=== PATIENT | male | born 2000 | race Caucasian/White ===

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

== ENCOUNTER 2018-02-05 03:07 | Emergency (ER) | payer BC ==
[~2018-02-05] VITALS: Ht 165.1 cm; Wt 69.4 kg
[2018-02-05 03:15] VITALS: TEMP 37.4; Ht 165.1 cm; Wt 69.4 kg
[2018-02-05] MEDS ORDERED: PROMETHAZINE HCL INJ 25 MG in SODIUM CHLORIDE 0.9% 50ML 50 ML IV STA (03:35)
[2018-02-05] MEDS ORDERED: SODIUM CHLORIDE 0.9% 1000ML 1,000 ML IV ONE (03:45)
[2018-02-05] MEDS ORDERED: ACETAMINOPHEN IV 1,000 MG in EMPTY BAG 0 ML IV ONE (03:45)
[2018-02-05] MEDS ORDERED: ACETAMINOPHEN 1000 MG/100 ML IV IV ONE (03:46)
[2018-02-05 03:47] LABS: BASO % 0.2 %; BASO ABS # 0.01 K/uL (0-0.2); EOS % 0.6 %; EOS ABS # 0.04 K/uL (0-0.5); HEMOGLOBIN 16.4 g/dL (14.0-18.0); IG# 0.03 K/uL (0.00-0.02); LYMPH % 13.9 %; LYMPH ABS # 0.92 K/uL (1.2-3.4); MEAN CELL VOLUME 87.3 fL (80-100); MEAN CORPUSCULAR HEMOGLOBIN 31.1 pg (25-34); MEAN CORPUSCULAR HGB CONC 35.7 g/dl (32-36); MEAN PLATELET VOLUME 9.8 fL (7.4-10.4); MONO ABS # 0.66 K/uL (0.11-0.59); NEUT % 74.8 %; NEUT ABS # 4.94 K/uL (1.4-6.5); PLATELET COUNT 201 K/uL (130-400); RED CELL DISTRIBUTION WIDTH SD 41.8 fL (36.4-46.3)
[2018-02-05 03:57] VITALS: O2SAT 99
[2018-02-05 04:10] LABS: CALCIUM 8.8 mg/dl (8.5-10.1); CREATININE 0.95 mg/dl (0.60-1.40); POTASSIUM 3.5 mmol/L (3.5-5.1)
[2018-02-05 04:12] LABS: TOTAL PROTEIN 7.4 gm/dl (6.4-8.2)
[2018-02-05 04:17] LABS: INFLUENZA B ANTIGEN Neg for Influ B (NEG)
[2018-02-05 05:42] VITALS: BP 119/67; PULSE 69
[2018-02-05] MEDS ORDERED: OPTIRAY 320 IV PRN (06:00)
--- NOTE | 2018-02-05 06:40 | DIAGNOSTIC IMAGING REPORT ---
ABDOMINAL ULTRASOUND, LEFT UPPER QUADRANT HISTORY: LUQ abd pain. +Monoscreen. COMPARISON: CT of the abdomen and pelvis September 11, 2017. FINDINGS: The spleen is top normal in size, measuring 12 cm in maximal dimension. Equivocal heterogeneity of the spleen is likely within normal limits. No splenic lesion is identified. There is trace perisplenic fluid. The left kidney is within normal limits. IMPRESSION: 1. Top normal size spleen. 2. Trace perisplenic fluid. 3. No sonographic abnormality of the left kidney. Electronically signed by: Oseas Amor M.D. 02/05/2018 6:39 AM Dictated Date/Time: 02/05/2018 6:37 AM
[2018-02-05] MEDS ORDERED: ONDA4TAB10 SL (06:59)
[2018-02-05 07:13] VITALS: O2SAT 97
--- NOTE | 2018-02-05 07:13 | DIAGNOSTIC IMAGING REPORT ---
PA CHEST WITH ABDOMINAL SERIES CLINICAL HISTORY: Nausea and vomiting. FINDINGS: A PA chest radiograph is compared to study dated 08/02/2017. The cardiomediastinal silhouette is unremarkable. The lungs and pleural spaces are clear. No pneumothorax is seen. The bony thorax is grossly intact. Supine and erect abdominal radiographs are correlated with abdominal CT dated 09/11/2017. There is a nonobstructed abdominal bowel gas pattern. No evidence of intraperitoneal free air is seen. Moderate colonic fecal retention is observed. There are no abnormal abdominal calcifications. The lumbosacral spine and bony pelvis appear intact. IMPRESSION: 1. No active disease in the chest. 2. Nonobstructed abdominal bowel gas pattern noting moderate colonic fecal retention. Electronically signed by: Santana Lassiter M.D. 02/05/2018 7:12 AM Dictated Date/Time: 02/05/2018 7:11 AM
--- NOTE | 2018-02-05 07:18 | DIAGNOSTIC IMAGING REPORT ---
CT ABD/PELVIS IV CONTRAST ONLY CLINICAL HISTORY: Left upper quadrant abdominal pain. History of abnormal splenic ultrasound. FEVER COMPARISON STUDY: CT scan dated 09/11/2017. Splenic ultrasound dated 02/05/2018 TECHNIQUE: Following the IV administration of 93 mL of Optiray-320, CT scan of the abdomen and pelvis was performed from the lung bases to the proximal femurs. Images are reviewed in the axial, sagittal, and coronal planes. IV contrast was administered without complication. A dose lowering technique was utilized adhering to the principles of ALARA. CT DOSE: 299.28 mGy.cm FINDINGS: Lower chest: There are minor basilar atelectatic changes. Liver: The contrast-enhanced liver is normal in size, contour, and attenuation. There is no intrahepatic biliary ductal dilatation. The hepatic veins and portal veins are patent. Gallbladder: Unremarkable. Spleen: Normal in size and attenuation. Pancreas: Unremarkable. Adrenal glands: Unremarkable. Kidneys: There is symmetric renal cortical enhancement. The kidneys are normal in size without hydronephrosis. Bowel: There are no transition zones indicate bowel obstruction. There is no acute diverticulitis. There is no evidence of acute appendicitis. There is scattered stool within the colon. Peritoneum: There is trace pelvic fluid unchanged from the prior study. There is no free intraperitoneal air. Vasculature: The abdominal aorta is normal in course and caliber. Adenopathy: None. Pelvic viscera: The bladder, and pelvic viscera are unremarkable. Skeletal structures: There is bilateral L5 spondylolysis IMPRESSION: 1. No evidence of bowel obstruction. No evidence of free air 2. No evidence of acute appendicitis. No evidence of acute diverticulitis 3. No splenic abnormalities identified Electronically signed by: Luc Eng M.D. 02/05/2018 7:17 AM Dictated Date/Time: 02/05/2018 7:10 AM
--- NOTE | 2018-02-06 03:40 | EMERGENCY ROOM VISIT NOTE ---
History First contact with patient: 03:25 Chief Complaint: ABDOMINAL PAIN Stated Complaint: VOMITING,FEVER,PAIN IN UPPER LT ABD Nursing Triage Summary: left upper abdominal pain with fever, nausea History of Present Illness The patient is a 17 year old male who presents to the Emergency Room with complaints of nausea, vomiting, fever, and left upper abdominal pain. The patient states that he has been traveling for the past several hours. He was in [facility] today, and took a flight to [facility]. Upon landing in [place] he began having nausea, and vomited in the airport. He was able to board a flight to [place] [employer], and suffered another episode of vomiting while in route. 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 He reports having a low-grade, 100.0 fever. He states that his emesis was primarily food, and believes that it was pizza that he ate while in [place]. He is not having chest pain, chest tightness, or lower abdominal discomfort. He did take 8 mg oral Zofran which has not significant improved his symptoms. He is trying to sip water, however this does worsen his discomfort. He rates his overall discomfort a 4/10. Review of Systems More than 10 systems were reviewed and otherwise negative with the exception of history of present illness. Past Medical/Surgical History Immunoglobulin disorder Social History Smoking Status: Never Smoker Alcohol Use: none Drug Use: none Occupation Status: [employer] student Current/Historical Medications Scheduled Immune Globulin (Human) (Gamunex-C), 7 GM INJ WK Omeprazole (Prilosec), 20 MG PO BID Ondasetron Odt (Zofran Odt), 4 MG SL Q6H Ranitidine (Zantac), 150 MG PO QAM Scheduled PRN Budesonide/Formoterol Fumarate (Symbicort 160/4.5 Inhaler ), 2 PUFFS INH BID PRN for Shortness of Breath Physical Exam Vital Signs Date Time Temp Pulse Resp B/P (MAP) Pulse Ox O2 Delivery O2 Flow Rate FiO2 02/05/18 07:13 17 97 02/05/18 05:42 69 16 119/67 96 Room Air 02/05/18 04:19 75 16 126/70 98 Room Air 02/05/18 04:00 80 02/05/18 03:57 80 16 141/81 99 Room Air 02/05/18 03:57 99 Room Air 02/05/18 03:15 37.4 99 18 121/78 97 Room Air Physical Exam VITALS: Vitals are noted on the nurse's note and reviewed by myself. Vital signs stable. GENERAL: Well-developed, well-nourished, white male, who is in no acute distress and resting comfortably. Patient is cooperative with the examination. HEAD: Normocephalic atraumatic. EARS: External ear normal. External auditory canals clear, tympanic membranes pearly cruz without erythema or effusion bilaterally. EYES: Pupils equal round and reactive to light and accommodation. Conjunctivae without injection, sclerae without icterus. Extraocular movements intact. NOSE: Patent, turbinates without inflammation or discharge. MOUTH: Mucous membranes moist. Tonsils are not enlarged. Pharynx without erythema, blood, or exudate. Uvula midline. Airway patent. NECK: Supple without nuchal rigidity. No lymphadenopathy. No thyromegaly. Cervical spine is nontender. HEART: Regular rate and rhythm without murmurs gallops or rubs. LUNGS: Clear to auscultation bilaterally without wheezes, rales or rhonchi. No retractions or accessory muscle use. ABDOMEN: Positive normal bowel sounds x 4. Soft with mild epigastric and left upper quadrant tenderness on palpation. No rebound or guarding. No lower abdominal tenderness. No CVA tenderness. MUSCULOSKELETAL: No muscle atrophy, erythema, or edema noted. Full range of motion in all extremities. No tenderness to palpation. Normal gait. Strength 5/5 throughout. NEURO: Patient was alert and oriented to person place and time. CN II through XII grossly intact. No focal neurological deficits. Medical Decision & Procedures ER Provider Diagnostic Interpretation: PA CHEST WITH ABDOMINAL SERIES CLINICAL HISTORY: Nausea and vomiting. FINDINGS: A PA chest radiograph is compared to study dated 08/02/2017. The cardiomediastinal silhouette is unremarkable. The lungs and pleural spaces are clear. No pneumothorax is seen. The bony thorax is grossly intact. Supine and erect abdominal radiographs are correlated with abdominal CT dated 09/11/2017. There is a nonobstructed abdominal bowel gas pattern. No evidence of intraperitoneal free air is seen. Moderate colonic fecal retention is observed. There are no abnormal abdominal calcifications. The lumbosacral spine and bony pelvis appear intact. IMPRESSION: 1. No active disease in the chest. 2. Nonobstructed abdominal bowel gas pattern noting moderate colonic fecal retention. ABDOMINAL ULTRASOUND, LEFT UPPER QUADRANT HISTORY: LUQ abd pain. +Monoscreen. COMPARISON: CT of the abdomen and pelvis September 11, 2017. FINDINGS: The spleen is top normal in size, measuring 12 cm in maximal dimension. Equivocal heterogeneity of the spleen is likely within normal limits. No splenic lesion is identified. There is trace perisplenic fluid. The left kidney is within normal limits. IMPRESSION: 1. Top normal size spleen. 2. Trace perisplenic fluid. 3. No sonographic abnormality of the left kidney. CT ABD/PELVIS IV CONTRAST ONLY CLINICAL HISTORY: Left upper quadrant abdominal pain. History of abnormal splenic ultrasound. FEVER COMPARISON STUDY: CT scan dated 09/11/2017. Splenic ultrasound dated 02/05/2018 TECHNIQUE: Following the IV administration of 93 mL of Optiray-320, CT scan of the abdomen and pelvis was performed from the lung bases to the proximal femurs. Images are reviewed in the axial, sagittal, and coronal planes. IV contrast was administered without complication. A dose lowering technique was utilized adhering to the principles of ALARA. CT DOSE: 299.28 mGy.cm FINDINGS: Lower chest: There are minor basilar atelectatic changes. Liver: The contrast-enhanced liver is normal in size, contour, and attenuation. There is no intrahepatic biliary ductal dilatation. The hepatic veins and portal veins are patent. Gallbladder: Unremarkable. Spleen: Normal in size and attenuation. Pancreas: Unremarkable. Adrenal glands: Unremarkable. Kidneys: There is symmetric renal cortical enhancement. The kidneys are normal in size without hydronephrosis. Bowel: There are no transition zones indicate bowel obstruction. There is no acute diverticulitis. There is no evidence of acute appendicitis. There is scattered stool within the colon. Peritoneum: There is trace pelvic fluid unchanged from the prior study. There is no free intraperitoneal air. Vasculature: The abdominal aorta is normal in course and caliber. Adenopathy: None. Pelvic viscera: The bladder, and pelvic viscera are unremarkable. Skeletal structures: There is bilateral L5 spondylolysis IMPRESSION: 1. No evidence of bowel obstruction. No evidence of free air 2. No evidence of acute appendicitis. No evidence of acute diverticulitis 3. No splenic abnormalities identified Laboratory Results 02/05/18 03:30 Red Blood Count 5.27, Mean Corpuscular Volume 87.3, Mean Corpuscular Hemoglobin 31.1, Mean Corpuscular Hemoglobin Concent 35.7, Mean Platelet Volume 9.8, Neutrophils (%) (Auto) 74.8, Lymphocytes (%) (Auto) 13.9, Monocytes (%) (Auto) 10.0, Eosinophils (%) (Auto) 0.6, Basophils (%) (Auto) 0.2, Neutrophils # (Auto ) 4.94, Lymphocytes # (Auto) 0.92, Monocytes # (Auto) 0.66, Eosinophils # (Auto ) 0.04, Basophils # (Auto) 0.01 02/05/18 03:30 Test 02/05/18 03:30 02/05/18 03:45 02/05/18 03:59 02/05/18 04:50 White Blood Count 6.60 K/uL (4.8-10.8) Red Blood Count 5.27 M/uL (4.7-6.1) Hemoglobin 16.4 g/dL (14.0-18.0) Hematocrit 46.0 % (42-52) Mean Corpuscular Volume 87.3 fL (80-100) Mean Corpuscular Hemoglobin 31.1 pg (25-34) Mean Corpuscular Hemoglobin Concent 35.7 g/dl (32-36) Platelet Count 201 K/uL (130-400) Mean Platelet Volume 9.8 fL (7.4-10.4) Neutrophils (%) (Auto) 74.8 % Lymphocytes (%) (Auto) 13.9 % Monocytes (%) (Auto) 10.0 % Eosinophils (%) (Auto) 0.6 % Basophils (%) (Auto) 0.2 % Neutrophils # (Auto) 4.94 K/uL (1.4-6.5) Lymphocytes # (Auto) 0.92 K/uL (1.2-3.4) Monocytes # (Auto) 0.66 K/uL (0.11-0.59) Eosinophils # (Auto) 0.04 K/uL (0-0.5) Basophils # (Auto) 0.01 K/uL (0-0.2) RDW Standard Deviation 41.8 fL (36.4-46.3) RDW Coefficient of Variation 13.0 % (11.5-14.5) Immature Granulocyte % (Auto) 0.5 % Immature Granulocyte # (Auto) 0.03 K/uL (0.00-0.02) Anion Gap 5.0 mmol/L (3-11) Est Creatinine Clear Calc Drug Dose 108.8 ml/min Estimated GFR () 134.0 Estimated GFR (Non- 115.6 BUN/Creatinine Ratio 12.8 (10-20) Calcium Level 8.8 mg/dl (8.5-10.1) Magnesium Level 2.1 mg/dl (1.8-2.4) Total Bilirubin 1.1 mg/dl (0.2-1) Aspartate Amino Transf (AST/SGOT) 22 U/L (15-37) Alanine Aminotransferase (ALT/SGPT) 22 U/L (12-78) Alkaline Phosphatase 80 U/L (45-117) Total Protein 7.4 gm/dl (6.4-8.2) Albumin 4.0 gm/dl (3.4-5.0) Globulin 3.4 gm/dl (2.5-4.0) Albumin/Globulin Ratio 1.2 (0.9-2) Lipase 106 U/L (73-393) Monoscreen POS (NEG) Influenza Type A Antigen Neg for Influ A (NEG) Influenza Type B Antigen Neg for Influ B (NEG) Bedside Lactic Acid Venous 0.69 mmol/L (0.90-1.70) Urine Color YELLOW Urine Appearance CLEAR (CLEAR) Urine pH 6.5 (4.5-7.5) Urine Specific [place] 1.022 (1.000-1.030) Urine Protein NEG (NEG) Urine Glucose (UA) NEG (NEG) Urine Ketones NEG (NEG) Urine Occult Blood NEG (NEG) Urine Nitrite NEG (NEG) Urine Bilirubin NEG (NEG) Urine Urobilinogen NEG (NEG) Urine Leukocyte Esterase NEG (NEG) Medications Administered Medications (Trade) Dose Ordered Sig/Sabrina Route Start Time Stop Time Status Last Admin Dose Admin Sodium Chloride 1,000 ml @ 999 mls/hr Q1H1M ONCE IV 02/05/18 03:45 02/05/18 04:45 DC 02/05/18 03:42 999 MLS/HR Promethazine HCl 25 mg/Sodium Chloride 51 ml @ 204 mls/hr NOW STAT IV 02/05/18 03:35 02/05/18 03:49 DC 02/05/18 03:35 204 MLS/HR Acetaminophen 1000 mg/Empty Bag 100 ml @ 400 mls/hr NOW ONCE IV 02/05/18 03:45 02/05/18 03:59 DC 02/05/18 03:45 400 MLS/HR ED Course Physical exam and history were performed. Nursing notes, EMR, and Medication List were personally reviewed. Patient appears to have nausea and vomiting symptoms for the past several hours while traveling. The patient has a history of immunoglobulin deficiency and is felt to be immunocompromised because of this. He does receive weekly injections of immunoglobulin. IV access was established and labs were obtained. The patient was hydrated and medicated as above with Phenergan as he has taken Zofran. I initially began his evaluation with plain films of his chest and abdomen. The patient's blood work is as above and was reviewed. He does not have a significantly elevated white blood cell count, gross anemia, bandemia, or significant electrolyte imbalance. Lipase and transaminases are not diagnostic. His Monospot is positive with EBV and CMV studies pending. His remaining labs are fairly unremarkable. Chest x-ray was reviewed by myself and radiology as showing no significant acute process. On reevaluation the patient's nausea was much improved, but he did continue to have some left-sided abdominal discomfort. Because of his positive mono and left upper quadrant pain I did elect to perform an ultrasound. Ultrasound shows spleen at the upper level of normal with nonspecific fluid. Considering his history and findings I was concerned for this and a CT scan was performed. CT scan does not show acute process otherwise explaining his symptoms Overall the patient was able to sleep for several hours here in the emergency department. I suspect his symptoms today are related to a gastroenteritis. 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 The patient will be given a note for class today as well as a short course of Zofran. He was otherwise invited back to the ER with any new, worsening, or concerning symptoms. The chart was completed utilizing [employer] Voice Recognition Software. Grammatical errors, random word insertions, pronoun errors, and incomplete sentences are an occasional consequence of this system due to software limitations, ambient noise, and hardware issues. Any formal questions or concerns about the content, text, or information contained within the body of this dictation should be directly addressed to the provider for clarification. . Medical Decision Differential diagnosis: Etiologies such as appendicitis, diverticulitis, PUD, biliary pathology, UTI, pancreatitis, obstruction, mesenteric ischemia, aortic pathology, infections, inflammatory bowel disease, renal colic, as well as others were entertained. Impression Primary Impression: Gastroenteritis Additional Impression: Nausea and vomiting Departure Information Dispostion Home / Self-Care Condition GOOD Prescriptions Ondasetron Odt (ZOFRAN ODT) 4 Mg Tab 4 MG SL Q6H for Nausea, #12 TAB Prov: Papito Moon PA-C 02/05/18 Forms HOME CARE DOCUMENTATION FORM, School Instructions, Additional Instructions: Patient was seen and evaluated today in the emergency department fo medical care. Ppatient may not return to class until 02/06/2018. Pleas excuse. IMPORTANT VISIT INFORMATION Patient Instructions My [facility] Additional Instructions You were seen and evaluated today on an emergency basis only. This is not a substitute for, or an effort to provide, complete comprehensive medical care. It is not possible to recognize and treat all injuries or illnesses in a single emergency department visit. For this reason it is recommended that you followup with S in the next 1-2 days for recheck of your condition Take Zofran 4 mg ODT: Dissolve 1 tablet every 6 hrs as needed for nausea. Drink plenty of fluids and remain well-hydrated your CT scan is consistent with gastroenteritis. This is likely viral or foodborne in nature and should improve over the next few days. You are welcome to return to the emergency department anytime with new, worsening, or concerning symptoms. School Instructions Additional School Instructions: Patient was seen and evaluated today in the emergency department for medical care. Ppatient may not return to class until 02/06/2018. Please excuse. Problem Qualifiers
== END 2018-02-05 07:13 | disposition home or self-care (01) ==
LOC: C.EDB 03:08 → C.EDA 07:13
DX: K52.9 Noninfective gastroenteritis and colitis, unspecified (principal); D84.9 Immunodeficiency, unspecified